=== PATIENT | female | born 1975 | race Caucasian/White ===

== ENCOUNTER → 2017-10-05 | Outpatient (CLI) | payer OTHER ==
[~2017-10-05] MED LIST: ADVIL200 MG PO; ASPIR-LOW81 MG PO; AUGMENTIN875 MG PO; CIPRO500 MG PO; CYCLOBENZAPRINE; FIORICET; FISH OIL500 MG PO; IRON325 MG PO; KEFLEX500 MG PO; LORATADINE10 M2 PO; LYRICA50 MG PO; NAPROSYN500 MG PO; NAPROXEN500 MG PO; NORCO 5/3251 TABLET PO; PERCOCET 5/31 TABLET PO; PREDNISONE20 MG PO; PRILOSEC OTC20 MG PO; PROAIR HFA8.5 GM IH; PROMETHAZINE-D120 ML PO; RANITIDINE HCL150 M1 PO; TYLENOL WITH C1 EACH PO; ULTRAM50 MG PO; VITAMIN D31000 UNIT PO; ZOFRAN ODT4 MG PO; ZOFRAN4 MG PO
== END | disposition home or self-care (01) ==
LOC: RAD 09:30
DX: M19.011 Primary osteoarthritis, right shoulder (principal); M47.892 Other spondylosis, cervical region; M48.02 Spinal stenosis, cervical region; M54.2 Cervicalgia
CPT/HCPCS: 72050; 73030